=== PATIENT | female | born 1990 | race Caucasian/White ===

== ENCOUNTER 2020-06-07 16:56 | Emergency (ER) | payer BC ==
[~2020-06-07] VITALS: Ht 165.1 cm; Wt 77.1 kg
[2020-06-07 16:56] VITALS: BP_SYST 118
--- NOTE | 2020-06-07 17:06 | NUR ---
Patient to ER bed 6 to gown for evaluation. Side rails up. Report given to ROLAND Rodrigues.
--- NOTE | 2020-06-07 17:06 | NUR ---
Note edwin in EDM - 06/07/20 at 1710 by QUIQUE Patient to bed 5 to reji for evaluation. Side rails up. Report given to ROLAND Appiah.
--- NOTE | 2020-06-07 17:10 | NUR ---
Patient arrived in the ED c/o left breast implant shifted up when she woke up this morning. Denied any shortness of breath. Denied any fevers, chills, nausea or vomiting. Patient is alert and oriented x4, respirations even and unlabored, speaking in full sentences, and ambulating with a steady gait. VSS, pain level 6/10. Informed of the approximate wait time. Instructed to notify ED staff for any changes in condition or worsening of symptoms while waiting to be seen by an ED provider. Patient verbalized understanding.
--- NOTE | 2020-06-07 17:15 | NUR ---
ER Dr. Marquez at bedside examining patient.
--- NOTE | 2020-06-07 17:32 | NUR ---
environmental services floor tech at bedside collecting blood specimen as ordered by Dr. Marquez. Patient tolerated the procedure well.
[2020-06-07 17:42] LABS: BASOPHILS # (AUTO) 0.1 K/uL (0.0-0.2); BASOPHILS % (AUTO) 1.2 % (0.0-2.0); EOSINOPHILS # (AUTO) 0.4 K/uL (0.0-0.4); EOSINOPHILS % (AUTO) 4.5 % (0.0-4.0); HEMATOCRIT 41.4 % (36-48); HEMOGLOBIN 13.7 g/dL (12.0-16.0); LYMPHOCYTES # (AUTO) 2.3 K/uL (1.0-5.5); LYMPHOCYTES % (AUTO) 27.6 % (20.5-51.5); MEAN CORPUSCULAR HEMOGLOBIN 31 pg (27-31); MEAN CORPUSCULAR HGB CONC 33 % (32-36); MEAN CORPUSCULAR VOLUME 94 fL (79.0-98.0); MONOCYTES # (AUTO) 0.6 K/uL (0.0-1.0); NEUTROPHILS # (AUTO) 4.9 K/uL (1.8-7.7); NEUTROPHILS % (AUTO) 59.7 % (40.0-70.0); PLATELET COUNT (AUTO) 239 K/uL (130-430); RED BLOOD CELL COUNT(AUTO) 4.42 MIL/uL (4.2-6.2); RED CELL DISTRIBUTION WIDTH 12.8 % (9.0-15.0); WHITE BLOOD COUNT (AUTO) 8.2 K/uL (4.8-10.8)
[2020-06-07 18:02] LABS: ANION GAP 9 (5-15); CALCIUM 8.7 mg/dL (8.4-11.0); CHLORIDE 101 mmol/L (98-107); CREATININE 0.83 mg/dL (0.55-1.30); GLUCOSE 103 mg/dL (70-99); POTASSIUM 3.6 mmol/L (3.5-5.1); SODIUM SERUM 136 mmol/L (136-145); UREA NITROGEN, BLOOD 15 mg/dL (8-21)
[2020-06-07 18:06] LABS: GFR AFRICAN AMERICAN 104 mL/min (>90)
--- NOTE | 2020-06-07 18:08 | NUR ---
Patient is taken to CT via gurney, in stable condition.
[2020-06-07 18:14] LABS: PROTHROMBIN TIME 9.8 SECS (9.5-12.5)
--- NOTE | 2020-06-07 18:20 | NUR ---
Patient is back from CT in stable condition.
[2020-06-07 19:14] VITALS: BP_SYST 118
--- NOTE | 2020-06-07 19:18 | NUR ---
Patient given written and verbal discharge instructions and verbalizes understanding. ER MD discussed with patient the results and treatment provided. Patient in stable condition. ID arm band removed. No Rx given. Patient educated on pain management and to follow up with PMD. Pain Scale 0/10. Opportunity for questions provided and answered. Medication side effect fact sheet provided.
== END 2020-06-07 19:18 | disposition home or self-care (01) ==
LOC: SED 16:56
DX: N64.4 Mastodynia (principal)
CPT/HCPCS: 36415; 71250-TC; 80048; 84484; 85025; 85610-TC; 85730-TC; 93005; 99285